=== PATIENT | male | born 1940 | race Caucasian/White ===

== ENCOUNTER 2017-06-08 08:28 | Day surgery (SDC) | payer BC, MEDICARE ==
[2017-06-08] MEDS ORDERED: DIPRIVAN 200 MG/20 ML IV ONE ×2 (08:29)
--- NOTE | 2017-06-08 08:47 | HP ---
DATE OF SURGERY: 06/08/2017 HISTORY OF PRESENT ILLNESS: The patient is a 77 year-old with change in bowel habits, increased constipation recently. He was at [facility] back in February. He had some change in his Metformin. Last colonoscopy in 2007 with no polyps and only rectal bleeding with some hard bowel movements on several occasions. No pain. PAST MEDICAL HISTORY: Diabetes mellitus type 2, enlarged heart. He has some renal dysfunction and some hypercholesterolemia. PAST SURGICAL HISTORY: He had left knee surgery in the past. He had colonoscopy back in 2007. MEDICATIONS: Humalog, Lantus, Fenofibrate, Atorvastatin, Verapamil, Captopril and baby aspirin. ALLERGIES: POSSIBLY PENICILLIN. FAMILY HISTORY: Heart disease. Diabetes. Negative for colon cancer. Negative for inflammatory bowel disease. SOCIAL HISTORY: No smoking. He does drink some alcohol denies abuse. REVIEW OF SYSTEMS: Twelve systems reviewed per admission assessment. No chest pain or palpitations other systems negative or noncontributory as above and per preadmission questionnaire. PHYSICAL EXAMINATION: GENERAL: No acute distress. HEENT: Sclerae nonicteric. NECK: No JVD. CHEST: Equal excursion, nonlabored breathing. CVS: Regular rate and rhythm. ABDOMEN: Soft. No peritoneal signs. EXTREMITIES: No significant edema. NEURO: Alert, moving extremities grossly symmetrically. No gross motor deficits noted. RECTAL: Deferred timed to endoscopy. IMPRESSION: Change in bowel habits and occasional rectal bleeding. Last colonoscopy nine years ago. He is in need of follow up colonoscopy for further evaluation. He was shown the risk sheet and explained the procedure in detail but not limited to bleeding, infection, small risk of bowel injury or perforation possibly requiring open procedure, small risk of missed or nondiagnosis or incomplete exam possibly requiring barium enema, other studies or procedures, general risk of anesthesia or sedation, risk of bowel prep, postoperative nausea or cramping but not limited to as well as possibility of inability to diagnose the etiology of his symptoms. He understands and agrees to the planned procedure and will proceed with colonoscopy as an outpatient.
[2017-06-08] MEDS ORDERED: Lactated Ringers 1,000 ML IV SCH (09:00)
[2017-06-08 12:19] VITALS: BP 142/70; PULSE 68; O2SAT 96
--- NOTE | 2017-06-09 07:40 | OP ---
SURGERY DATE: 06/08/17 SURGERY TIME: 1035 PREOPERATIVE DIAGNOSIS: 1. HISTORY OF CHANGE IN BOWEL HABITS. 2. HISTORY OF RECTAL BLEEDING. POSTOPERATIVE DIAGNOSIS: 1. POOR BOWEL PREP LIMITING THE EXAM. 2. DIVERTICULOSIS. 3. SMALL RAISED LESIONS SIGMOID COLON AND RECTUM. 4. SMALL INTERNAL/EXTERNAL HEMORRHOIDS. PROCEDURE: 1. Colonoscopy to cecum with random cold biopsies of the colon to evaluate for microscopic colitis given his change in bowel habits. 2. Hot biopsy small raised lesion sigmoid colon and rectum. SURGEON: Dr. Duane Chandler. ANESTHESIA: MAC. ESTIMATED BLOOD LOSS: Minimal. INDICATIONS: As noted above. Risks and benefits explained in detail, but not limited to. Consent obtained. DESCRIPTION OF PROCEDURE AND FINDINGS: The patient was taken to the OR. MAC anesthesia introduced. After official time-out, no disagreement in planned procedure. Digital rectal exam did not reveal any rectal masses. He did have some small internal/external hemorrhoids. Video colonoscope inserted and passed up through the poorly prepped colon with solid and semisolid stool. Scope was slowly, carefully navigated throughout sigmoid, descending, and transverse colon. With positioning on his back and external pressure, the scope was able to be passed around to the cecum. Appendiceal orifice and valve were well visualized. Prep overall was quite poor limiting the exam for small lesions. It was suction irrigated as well as possible, but a lot of the stool was too thick to suction through the scope. The scope was slowly, carefully withdrawn. There were no signs of any large polyps, masses, or obstructing lesions. He did have some small raised lesions vs hyperplastic polyp vs hyperplastic lesions in the transverse colon, sigmoid colon, and rectosigmoid colon and rectum. These were removed with hot biopsy forceps and brief bursts of cautery. Otherwise, he had some internal/external hemorrhoids. He had some diverticulosis. There were no signs of any large polyps, masses, or obstructing lesions. Again, his poor prep did limit the exam. Findings discussed with the family out in the waiting area.
== END 2017-06-08 12:25 | disposition home or self-care (01) ==
LOC: SDC 08:28
PROVIDERS: ATTEND Surgery
PROC: 0DBP8ZX Excision of Rectum, Via Natural or Artificial Opening Endoscopic, Diagnostic (ICD-10-PCS; principal; 2017-06-08)
PROC: 0DBN8ZX Excision of Sigmoid Colon, Via Natural or Artificial Opening Endoscopic, Diagnostic (ICD-10-PCS; 2017-06-08)
DX: K57.30 Diverticulosis of large intestine without perforation or abscess without bleeding (principal); K63.9 Disease of intestine, unspecified; K64.4 Residual hemorrhoidal skin tags; K64.8 Other hemorrhoids
CPT/HCPCS: 00810; 36415; 88305; 99100; J2704